=== PATIENT | female | born 1960 | race Caucasian/White ===

== ENCOUNTER 2023-08-27 08:58 | Day surgery (SDC) | payer OTHER ==
[~2023-08-27 08:58] MED LIST: Midazolam 1 MG/ML 2 ML SDV ONE; Propofol 200 MG/20 ML SDV ONE; fentaNYL 50 MCG/ML SDV ONE
[2023-08-27] MEDS ORDERED: Sodium Chloride 0.9% 1,000 ML IV SCH (09:30)
[2023-08-27] MEDS ORDERED: Glycopyrrolate 0.2 MG/ML 2 ML SDV ONE (11:08)
== END 2023-08-27 12:49 | disposition home or self-care (01) ==
LOC: JP.SDS 08:58
PROVIDERS: ATTEND Surgery
DX: Z12.11 Encounter for screening for malignant neoplasm of colon (principal); K57.30 Diverticulosis of large intestine without perforation or abscess without bleeding; I10 Essential (primary) hypertension; E78.5 Hyperlipidemia, unspecified; E66.9 Obesity, unspecified; Z88.8 Allergy status to other drugs, medicaments and biological substances; Z88.1 Allergy status to other antibiotic agents; Z68.35 Body mass index [BMI] 35.0-35.9, adult
CPT/HCPCS: 45378; J2250; J2704; J3010; J3490; J7030